=== PATIENT | female | born 1965 | race Asian ===

== ENCOUNTER 2021-06-12 07:22 | Outpatient (CLI) | payer BC, OTHER ==
[2021-06-12 08:04] LABS: HEMATOCRIT 36.9 % (31.2-41.9); MEAN CORPUSCULAR HEMOGLOBIN 31.7 uug (24.7-32.8); MEAN CORPUSCULAR VOLUME 92.3 fL (75.5-95.3); PLATELET COUNT (AUTO) 290 K/uL (179-408)
[2021-06-12 08:09] LABS: *BILIRUBIN,URIN NEGATIVE (NEGATIVE); *BLOOD, URINE NEGATIVE (NEGATIVE); *CLARITY,URINE CLEAR (CLEAR); *COLOR,URINE YELLOW (YELLOW); *KETONES,URINE NEGATIVE (NEGATIVE); *UROBILINOGEN,URINE 0.2 E.U./dl (NORMAL); LEUKOCYTE ESTERASE ,URINE 1+ (NEGATIVE); NITRITE, URINE NEGATIVE (NEGATIVE); UGLUCOSE NEGATIVE (NEGATIVE)
[2021-06-12 08:29] LABS: THYROID STIMULATING HORMONE 1.037 mIU/mL (0.358-3.740)
[2021-06-12 10:01] LABS: BILIRUBIN,TOTAL 0.5 mg/dL (0.2-1.0); CREATININE 0.7 mg/dL (0.6-1.3); POTASSIUM 4.1 mmol/L (3.5-5.1); TOTAL PROTEIN, SERUM 7.9 g/dL (6.4-8.2)
[2021-06-12 15:19] LABS: BACTERIA,URINE FEW /HPF (NONE SEEN); RBC,URINE 0-3 /HPF (0-3); SQUAMOUS EPITHELIAL CELL,UR FEW /HPF (NONE SEEN)
== END 2021-06-12 23:59 | disposition home or self-care (01) ==
LOC: LAB 07:22
PROVIDERS: ATTEND Legal Medicine
DX: E78.5 Hyperlipidemia, unspecified (principal); N18.9 Chronic kidney disease, unspecified; E03.9 Hypothyroidism, unspecified; D64.9 Anemia, unspecified; E55.9 Vitamin D deficiency, unspecified; M65.331 Trigger finger, right middle finger; Z00.00 Encounter for general adult medical examination without abnormal findings
CPT/HCPCS: 36415; 73140; 82306; 82746; 83550; 84443; 85025; 87077; 87086

== ENCOUNTER 2024-05-04 20:01 | Emergency (ER) | payer BC, OTHER ==
[~2024-05-04] VITALS: Ht 165.1 cm; Wt 65.8 kg
[2024-05-04 20:30] LABS: *BILIRUBIN,URIN NEGATIVE (NEGATIVE); *BLOOD, URINE 3+ (NEGATIVE); *CLARITY,URINE CLOUDY (CLEAR); *COLOR,URINE YELLOW (YELLOW); *KETONES,URINE NEGATIVE (NEGATIVE); *PROTEIN,URINE TRACE (NEGATIVE); *UROBILINOGEN,URINE 0.2 E.U./dl (NORMAL); LEUKOCYTE ESTERASE ,URINE 3+ (NEGATIVE); NITRITE, URINE NEGATIVE (NEGATIVE); PH,URINE 6.5 (5.0-8.0); UGLUCOSE NEGATIVE (NEGATIVE)
[2024-05-04 21:05] LABS: BASOPHILS # (AUTO) 0.1 K/UL (0.0-0.2); BASOPHILS % (AUTO) 0.5 % (0.0-2.0); EOSINOPHILS # (AUTO) 0.2 K/uL (0.0-0.7); EOSINOPHILS % (AUTO) 2.2 % (0.0-7.0); HEMATOCRIT 36.3 % (31.2-41.9); HEMOGLOBIN 11.9 g/dL (10.9-14.3); LYMPHOCYTES # (AUTO) 2.5 K/uL (0.8-4.8); LYMPHOCYTES % (AUTO) 23.7 % (20.5-51.5); MEAN CORPUSCULAR HEMOGLOBIN 30.4 uug (24.7-32.8); MEAN CORPUSCULAR HGB CONC 33 g/dL (32.3-35.6); MEAN CORPUSCULAR VOLUME 92.5 fL (75.5-95.3); MONOCYTES # (AUTO) 0.6 K/uL (0.1-1.30); NEUTROPHILS # (AUTO) 7.1 K/uL (1.8-8.9); NEUTROPHILS % (AUTO) 67.6 % (38.5-71.5); PLATELET COUNT (AUTO) 285 K/uL (179-408); RED BLOOD CELL COUNT(AUTO) 3.92 MIL/uL (3.63-4.92); RED CELL DISTRIBUTION WIDTH 12.8 % (12.3-17.7); WHITE BLOOD COUNT (AUTO) 10.4 K/uL (3.8-11.8)
[2024-05-04 21:09] LABS: DIFFERENTIAL COMMENT 1
[2024-05-04 21:14] LABS: CALCIUM 8.5 mg/dL (8.5-10.1); CREATININE 0.5 mg/dL (0.6-1.3); POTASSIUM 3.7 mmol/L (3.5-5.1)
[2024-05-04 21:19] LABS: ALBUMIN 3.3 g/dL (3.4-5.0); BILIRUBIN,DIRECT 0.2 mg/dL (0.0-0.2); BILIRUBIN,TOTAL 0.6 mg/dL (0.2-1.0)
[2024-05-04 21:22] LABS: BACTERIA,URINE FEW /HPF (NONE SEEN); SQUAMOUS EPITHELIAL CELL,UR FEW /HPF (NONE SEEN); WBC,URINE 80-100 /HPF (0-3)
--- NOTE | 2024-05-04 21:30 | NUR ---
Patient laying on gurney reading a book with no distress noted.
[2024-05-04] MEDS ORDERED: AMOXICILLIN-CLAVUL 875-125MG TABLET ONE (21:57)
[2024-05-04] MEDS ORDERED: FOSFOMYCIN TROMETHAMINE 3 GM PACKET ONE (21:57)
[2024-05-04] MEDS: FOSFOMYCIN TROMETHAMINE 3 GM PACKET PO ONE (22:01)
[2024-05-04] MEDS: AMOXICILLIN-CLAVUL 875-125MG TABLET PO ONE (22:01)
[2024-05-04] MEDS ORDERED: AMOX-430 PO (22:09)
[2024-05-04] MEDS ORDERED: PHEN-704 PO (22:09)
--- NOTE | 2024-05-04 22:32 | NUR ---
Patient discharged to home in stable condition. Written and verbal after care instructions given. Patient verbalizes understanding of instructions. Stressed follow up or return to ER for worsening s/s.
[2024-05-04 22:34] VITALS: BP 118/75; TEMP 97.8; O2SAT 99
== END 2024-05-04 22:32 | disposition home or self-care (01) ==
LOC: ER 20:03
DX: N39.0 Urinary tract infection, site not specified (principal); E78.5 Hyperlipidemia, unspecified; Z90.49 Acquired absence of other specified parts of digestive tract; Z79.899 Other long term (current) drug therapy
CPT/HCPCS: 36415; 85025; 85651; A4606; A4663

== ENCOUNTER 2025-06-30 16:22 | Emergency (ER) | payer BC, OTHER ==
[~2025-06-30] VITALS: Ht 162.6 cm; Wt 61.2 kg
[~2025-06-30 16:22] MED LIST: AMOX-430 PO; PHEN-704 PO
[2025-06-30 16:29] VITALS: BP 119/69
[2025-06-30 16:38] LABS: *BILIRUBIN,URIN NEGATIVE (NEGATIVE); *BLOOD, URINE 3+ (NEGATIVE); *COLOR,URINE YELLOW (YELLOW); *KETONES,URINE NEGATIVE (NEGATIVE); *PROTEIN,URINE 1+ (NEGATIVE); *UROBILINOGEN,URINE 0.2 E.U./dl (NORMAL); LEUKOCYTE ESTERASE ,URINE 3+ (NEGATIVE); NITRITE, URINE NEGATIVE (NEGATIVE); UGLUCOSE NEGATIVE (NEGATIVE)
[2025-06-30 16:41] LABS: *CLARITY,URINE SLIGHTLY CLOUDY (CLEAR)
[2025-06-30 16:59] LABS: SQUAMOUS EPITHELIAL CELL,UR FEW /HPF (NONE SEEN)
[2025-06-30] MEDS ORDERED: PHENAZOPYRIDINE HCL 100 MG TABLET ONE (16:59)
[2025-06-30] MEDS: PHENAZOPYRIDINE HCL 100 MG TABLET PO ONE (17:00)
[2025-06-30] MEDS ORDERED: CEFTRIAXONE /D5W 50ML IVPB **ER PYXIS IV ONE (17:41)
[2025-06-30] MEDS ORDERED: CEFD300C3 PO (17:50)
[2025-06-30] MEDS ORDERED: PHEN-705 PO (17:50)
[2025-06-30 18:19] VITALS: BP 119/69; O2SAT 98
== END 2025-06-30 18:20 | disposition home or self-care (01) ==
LOC: ER 16:22
DX: N39.0 Urinary tract infection, site not specified (principal); E78.5 Hyperlipidemia, unspecified; I51.9 Heart disease, unspecified; Z90.49 Acquired absence of other specified parts of digestive tract; Z90.89 Acquired absence of other organs
CPT/HCPCS: 99284; 96365; 81001; 87186; 87086; 87077; J0696; A4606; A4663